=== PATIENT | male | born 1955 | race Caucasian/White ===

== ENCOUNTER 2016-10-06 07:26 | Day surgery (SDC) | payer BC ==
[2016-10-06] VITALS (11 sets, daily range): BP systolic 96–108; BP diastolic 50–62; PULSE 59–61; TEMP 36.7–36.9; O2SAT 93–97; Ht 182.9 cm; Wt 74.0 kg
[~2016-10-06] VITALS: Ht 182.9 cm; Wt 74.0 kg
[2016-10-06] MEDS ORDERED: CLON1TAB3 PO (08:03)
[2016-10-06] MEDS ORDERED: WARF6TAB5 PO (08:03)
[2016-10-06] MEDS ORDERED: gabapentin PO (08:03)
[2016-10-06] MEDS ORDERED: METO1TAB69 PO (08:03)
[2016-10-06] MEDS ORDERED: TRAM-10 PO (08:03)
[2016-10-06] MEDS ORDERED: CYAN10005 PO (08:03)
[2016-10-06 08:44] LABS: PROTHROMBIN TIME (PATIENT) 11.1 SECONDS (9.0-12.0)
--- NOTE | 2016-10-06 10:51 | DIAGNOSTIC IMAGING REPORT ---
FLUOROSCOPICALLY GUIDED LUMBAR MYELOGRAM CLINICAL HISTORY: Low back pain. FLUOROSCOPY TIME: 0.4 minutes. 4 fluoroscopic spot images submitted PROCEDURE: The procedure, risks and benefits were discussed with the patient including the risk of spinal headache, bleeding and infection. The patient agreed to the procedure and informed written consent was obtained. The procedure was performed by Dr. Padilla following a timeout. The left L3-L4 interlaminar space was targeted. Skin overlying the space was prepped and draped in the usual sterile fashion and local anesthesia was achieved with 1% lidocaine. Under intermittent fluoroscopic guidance, a 20-gauge x 3 1/2 in. Sprotte needle was inserted into the thecal sac. A total of 12cc of Isovue-M 200 was injected into the thecal sac under fluoroscopic guidance. The patient tolerated the procedure well. There were no immediate complications. IMPRESSION: Successful fluoroscopic guided lumbar myelogram. The patient was transported to the CT suite and stable condition. Electronically signed by: Porter Padilla M.D. 10/06/2016 10:50 AM Dictated Date/Time: 10/06/2016 10:48 AM
--- NOTE | 2016-10-06 11:09 | DIAGNOSTIC IMAGING REPORT ---
LUMBAR CT MYELOGRAM HISTORY: LUMBAR SPINE PAIN POST MYELO TECHNIQUE: Multiaxial CT images of the lumbar spine were performed and reformatted in the sagittal and coronal plane following the intrathecal injection of contrast. COMPARISON STUDY: None. FINDINGS: No fracture or subluxation. Mild posterior disc space narrowing at L5-S1. Remaining disc spaces are preserved. The conus terminates at the L1 level. Mild facet degenerative changes at L4-L5 and L5-S1. The sacrum is intact. The paraspinal soft tissues are unremarkable. Suboptimal evaluation the central canal from the L3 and L4 levels due to the layering of contrast. L1-L2: No significant central canal or neural foraminal narrowing. L2-L3: No significant central canal or neural foraminal narrowing. L3-L4: No definite central canal or neural foraminal narrowing. L4-L5: Broad-based posterior disc bulge asymmetric to the left with mild ligamentum and facet hypertrophy. This results in mild central canal and mild left-sided neural foraminal narrowing. The disc bulge appears to abut the transiting left L5 nerve root. L5-S1: Small broad-based posterior disc bulge without significant central canal or neural foraminal narrowing. IMPRESSION: 1. Mild degenerative changes within the lower lumbar spine as described above. 2. This is most pronounced at the L4-5 level where there is a small broad-based posterior disc bulge asymmetric to the left resulting in mild central canal and mild left-sided neural foraminal narrowing. The disc bulge appears to abut the transiting left L5 nerve root Electronically signed by: Porter Padilla M.D. 10/06/2016 11:07 AM Dictated Date/Time: 10/06/2016 10:50 AM
--- NOTE | 2016-10-06 11:41 | Discharge Instructions ---
Discharge Instructions Procedure Procedure Date: Oct 06, 2016. Reason for visit: Lumbar Spine Pain. Discharge Discharge Date: Oct 06, 2016. Discharge Diagnosis: same Instructions Activity Recommendations: No limitations Return to School/Work: no limitations Recommended Home Diet: Resume Previous Diet Provider Instructions: ACTIVITY RECOMMENDATIONS: * Rest today. * Resume regular activity in one day. MEDICATIONS: * May take Tylenol or Ibuprofen as needed for pain. DIET: * Resume previous diet. SPECIAL CARE INSTRUCTIONS: Call your doctor if: * Temperature above 101 degrees F. * Pain not relieved by pain medicine ordered. * Increased drainage or redness from incision. * Notify your doctor with any questions or concerns. Call your doctor or go to the nearest Emergency Department if you experience: * Increased chest pain or shortness of breath. FOLLOW UP VISIT: Follow-up with Referring Physician as scheduled. Allergies Coded Allergies: Indomethacin (Verified Adverse Reaction, Unknown, bruises, 10/06/16) Alexus Ohara Recommendations: Call your doctor if: * Temperature above 101 degrees * Pain not relieved by pain medicine ordered * There is increased drainage or redness from any incision * You have any unanswered questions or concerns. Your Doctors Instructions noted above were prepared by provider Porter Padilla. Patient Signature Section: Patient Instructions Signature Page Steve Mace Patient (or Guardian) Signature/Date: I have read and understand the instructions given to me by my caregivers. Caregiver/RN/Doctor Signature/Date: The above-named patient and/or guardian has received patient instructions on this date. + Original Patient Signature Page (only) stays with chart. Please make copy for patient.
[2016-10-06] MEDS ORDERED: ACETAMINOPHEN 500 MG TAB PO PRN (11:45)
[2016-10-28] MEDS ORDERED: CMD3 PO ×2 (09:13)
[2016-10-28] MEDS ORDERED: METO25TA3 PO (09:13)
[2016-10-28] MEDS ORDERED: GABA-113 PO (09:13)
[2016-10-28] MEDS ORDERED: FLM4 PO (09:13)
== END 2016-10-06 15:07 | disposition home or self-care (01) ==
LOC: C.ACU 07:26
PROVIDERS: ATTEND Orthopaedic Surgery Orthopaedic Surgery of the Spine
DX: M54.5 Low back pain (principal)

== ENCOUNTER → 2016-10-19 | Outpatient (CLI) | payer BC ==
[~2016-10-19] MED LIST: CLON1TAB3 PO; CMD3 PO; CYAN10005 PO; FLM4 PO; GABA-113 PO; METO1TAB69 PO; METO25TA3 PO; RXC5 PO; TRAM-10 PO; WARF6TAB5 PO; gabapentin PO
--- NOTE | 2016-10-19 13:35 | DIAGNOSTIC IMAGING REPORT ---
ANKLE BRACHIAL INDEX LIMITED CLINICAL HISTORY: 61 years-old Male presenting with BILATERAL LOWER EXTREMITY PAIN. TECHNIQUE: Ankle brachial indices were obtained. COMPARISON: None. FINDINGS: Brachial: Right: 110 mmHg. Left: 110 mmHg. Ankle (posterior tibial): Right: 138 mmHg. Left: 145 mmHg. Ankle (dorsalis pedis): Right: 139 mmHg. Left: 146 mmHg. Ankle/brachial index: Right: 1.25-1.26, Left: 1.32-1.33. Reference ranges: Normal GLEN 1.0-1.4; 0.9-0.99 borderline; less than 0.9 abnormal. IMPRESSION: Normal bilateral ankle-brachial indices. Electronically signed by: Kenny Sanchez M.D. 10/19/2016 1:34 PM Dictated Date/Time: 10/19/2016 1:32 PM
== END | disposition home or self-care (01) ==
LOC: C.ULTR 12:44
PROVIDERS: ATTEND Orthopaedic Surgery Orthopaedic Surgery of the Spine
DX: M79.604 Pain in right leg (principal)

== ENCOUNTER 2016-11-11 05:36 | Inpatient (IN) | payer BC ==
[2016-10-28 08:45] VITALS: BMI 21.0
--- NOTE | 2016-10-28 09:28 | PAT Medication Instructions ---
Service Date Oct 28, 2016. Current Home Medication List Clonazepam (Klonopin), 1 MG PO QAM Cyanocobalamin (Vitamin B-12), 1,000 MCG PO QDL Gabapentin (Neurontin), 600 MG PO TID Metoprolol Succ (Toprol Xl) (Toprol-Xl), 25 MG PO BID Tamsulosin HCl (Tamsulosin HCl), 1 TAB PO QPM Tramadol (Ultram), 50 MG PO DAILY PRN for Pain Warfarin Sod (Coumadin), 2 TAB PO DAILY Warfarin Sod (Coumadin), 3 MG PO WK Medication Instructions For Your Scheduled Surgery - Instructions to be given by Cardiology: Warfarin Sod (Coumadin) - Hold the following medications the morning of surgery: Cyanocobalamin (Vitamin B-12), 1,000 MCG PO QDL - Take the following medications the morning of surgery with a sip of water OTHERWISE NOTHING TO EAT OR DRINK AFTER MIDNIGHT: Gabapentin (Neurontin), 600 MG PO TID Tramadol (Ultram), 50 MG PO DAILY PRN for Pain (may take if needed up to 4 hours prior to surgery) Metoprolol Succ (Toprol Xl) (Toprol-Xl), 25 MG PO BID Clonazepam (Klonopin), 1 MG PO QAM - Take the following medications as scheduled the night before surgery: Gabapentin (Neurontin), 600 MG PO TID Tramadol (Ultram), 50 MG PO DAILY PRN for Pain Metoprolol Succ (Toprol Xl) (Toprol-Xl), 25 MG PO BID Tamsulosin HCl (Tamsulosin HCl), 1 TAB PO QPM If you have any questions please call us at [phone] or [phone] or [phone]
--- NOTE | 2016-10-28 10:15 | DIAGNOSTIC IMAGING REPORT ---
CHEST PREADMISSION(PA/LAT) CLINICAL HISTORY: PAT preoperative evaluation COMPARISON STUDY: No previous studies for comparison. FINDINGS: Permanent bipolar cardiac pacemaker in good position. Lungs are considered clear. Diaphragms smooth. There are no focal infiltrative changes. IMPRESSION: Negative chest. The above report was generated using voice recognition software. It may contain grammatical, syntax or spelling errors. Electronically signed by: Иван Zavaleta M.D. 10/28/2016 10:14 AM Dictated Date/Time: 10/28/2016 10:13 AM
[2016-10-28 10:23] LABS: BASO % 0.2 %; BASO ABS # 0.01 K/uL (0-0.2); COMPLETE YES; HEMATOCRIT 43.8 % (42-52); IG% 0.2 %; LYMPH % 29.9 %; LYMPH ABS # 1.34 K/uL (1.2-3.4); MEAN CELL VOLUME 91.3 fL (80-100); MEAN CORPUSCULAR HEMOGLOBIN 29.8 pg (25-34); MEAN CORPUSCULAR HGB CONC 32.6 g/dl (32-36); MEAN PLATELET VOLUME 10.1 fL (7.4-10.4); MONO % 6.5 %; NEUT % 61.2 %; PLATELET COUNT 161 K/uL (130-400); WHITE BLOOD COUNT 4.48 K/uL (4.8-10.8)
[2016-10-28 10:26] LABS: URINE APPEARANCE CLEAR (CLEAR); URINE COLOR DK YELLOW; URINE NITRITE NEG (NEG); URINE PH 5.5 (4.5-7.5); URINE SPECIFIC GRAVITY 1.031 (1.000-1.030); UROBILINOGEN NEG (NEG); ZZUR CULT IF INDIC CLEAN CATCH NO
[2016-10-28 10:31] LABS: MANUAL MICROSCOPIC REQUIRED? NO; REVIEW REQ? NO
[2016-10-28 10:33] LABS: URINE BILIRUBIN NEG (NEG)
[2016-11-06 14:07] VITALS: BMI 21.0
[~2016-11-11] VITALS: Ht 182.9 cm; Wt 71.8 kg
[2016-11-11] VITALS (10 sets, daily range): BP systolic 95–130; BP diastolic 49–67; PULSE 60–93; TEMP 36.3–36.8; O2SAT 96–100; Ht 182.9 cm; Wt 71.8 kg
[~2016-11-11 05:36] MED LIST changes: -METO1TAB69 PO; -RXC5 PO; -WARF6TAB5 PO; -gabapentin PO
[2016-11-11] MEDS ORDERED: LACTATED RINGER'S 1000ML 1,000 ML IV SCH (06:00)
[2016-11-11] MEDS ORDERED: CEFAZOLIN 1000MG/55 ML D5W IV SCH (06:00)
[2016-11-11] MEDS ORDERED: MIDAZOLAM HCL 1 MG/ML 2ML VIAL ONE (06:41)
[2016-11-11] MEDS ORDERED: FENTANYL CITRATE INJ 50 MCG/1 ML 2 ML VIAL ONE ×2 (06:41→08:15)
[2016-11-11] MEDS ORDERED: BACITRACIN 50000 UNIT VIAL ONE (06:55)
[2016-11-11] MEDS ORDERED: BUPIVACAINE/EPINEPHRINE 0.5% MPF 1:200,000 30 ML VIAL ONE (06:55)
--- NOTE | 2016-11-11 07:29 | History & Physical Bridge Note ---
H&P Re-Evaluation Bridge Note: I have examined the patient, reviewed the History & Physical and in the interval since the performance of the History & Physical I have noted the following changes of clinical significance: No changes noted
--- NOTE | 2016-11-11 07:30 | History and Physical ---
History & Physical Date Nov 11, 2016. Chief Complaint Chronic back and leg pain History of Present Illness The patient is a 61 year old male with complaints of chronic back and leg pain Additional History Hepatic Disease: No Endocrine Disorder: No Kidney Disease: No Hypertension: Yes Heart Disease: No Bleeding Tendencies: No Infectious Diseases: No Allergies Coded Allergies: Indomethacin (Verified Adverse Reaction, Unknown, bruises, 11/11/16) Home Medications Scheduled Clonazepam (Klonopin), 1 MG PO QAM Cyanocobalamin (Vitamin B-12), 1,000 MCG PO QDL Gabapentin (Neurontin), 600 MG PO TID Metoprolol Succ (Toprol Xl) (Toprol-Xl), 25 MG PO BID Tamsulosin HCl (Tamsulosin HCl), 1 TAB PO QPM Warfarin Sod (Coumadin), 2 TAB PO DAILY Warfarin Sod (Coumadin), 3 MG PO WK Scheduled PRN Tramadol (Ultram), 50 MG PO DAILY PRN for Pain Physical Examination Skin: warm/dry, no rash Eyes: normal inspection, EOMI, sclerae normal ENT: normal ENT inspection, pharynx normal Head: normocephalic, atraumatic Neck: supple, no adenopathy, trachea midline Respiratory/Chest: lungs clear, normal breath sounds, no respiratory distress Cardiovascular: regular rate, rhythm, no edema, no murmur Abdomen / GI: normal bowel sounds, non tender Back: normal inspection Extremities: normal inspection, normal range of motion Neurologic/Psych: no motor/sensory deficits, alert, normal reflexes, oriented x 3 Diagnosis Chronic back and leg pain Plan of Treatment Spinal cord stimulator trial
[2016-11-11 07:48] LABS: PROTHROMBIN TIME (PATIENT) 10.7 SECONDS (9.0-12.0)
[2016-11-11] MEDS ORDERED: FENTANYL CITRATE INJ 50 MCG/1 ML 2 ML VIAL IV PRN (08:00)
[2016-11-11] MEDS ORDERED: ONDANSETRON INJ 2 MG/ML 2 ML VIAL IV PRN ×2 (08:00→08:45)
[2016-11-11] MEDS ORDERED: ATROPINE SULFATE 0.1 MG/ML 5ML SYR IV PRN (08:00)
[2016-11-11] MEDS ORDERED: PROMETHAZINE HCL INJ 6.25 MG in SODIUM CHLORIDE 0.9% 50ML 50 ML IV PRN (08:00)
[2016-11-11] MEDS ORDERED: EpHEDrine SULFATE INJ 50 MG/ML AMP IV PRN (08:00)
[2016-11-11] MEDS ORDERED: HYDROmorphone INJ 1 MG/ML SYR IV PRN ×2 (08:00→08:45)
[2016-11-11] MEDS ORDERED: FLOSEAL HEMOSTATIC MATRIX 5ML TOP ONE (08:13)
[2016-11-11] MEDS ORDERED: HYDROmorphone INJ 2 MG/ML SYR/VIAL ONE (08:15)
--- NOTE | 2016-11-11 08:42 | DIAGNOSTIC IMAGING REPORT ---
SPINE ONE VIEW, ANY LEVEL HISTORY: Spinal stimulator placement. FLUOROSCOPY TIME: 9.5 seconds. FINDINGS: Intraoperative fluoroscopy was provided for the thoracic spine. 1 fluoroscopic spot images were obtained. IMPRESSION: Fluoroscopy provided for a low thoracic stimulator placement. The above report was generated using voice recognition software. It may contain grammatical, syntax or spelling errors. Electronically signed by: Иван Zavaleta M.D. 11/11/2016 8:41 AM Dictated Date/Time: 11/11/2016 8:40 AM
--- NOTE | 2016-11-11 08:43 | [facility] Operative Report ---
Operative Report Operative Date Nov 11, 2016. Pre-Operative Diagnosis Chronic back and leg pain. Post-Operative Diagnosis Chronic back and leg pain Procedure(s) Performed #1 T10 laminotomy. #2 placement of 16-lead dorsal column stimulator paddle #3 Tashman of external leads for dorsal column stimulator trial Surgeon Molder Wax Ball Surgeon(s) Marion Pang PA-C Estimated Blood Loss 10ml Findings None Specimens None per surgeon Description of Procedure Patient was met with preoperatively case discussed all questions are dressed. After informed consent patient was taken to the operative suite and underwent intubation placed in a prone position the [place] table top Cullen frame. All bony prominences were well-padded eyes were inspected to ensure there is no external pressure. With the assistance of fluoroscopy identified the T 1011 disc space. A midline incision was created overlying this region. Sharp dissection with the assistance of Bovie cautery was performed onto an exposing the interlaminar space at T10 11. Then performed a midline T10 laminotomy large enough to place a 16-lead dorsal column stimulator paddle. This was slid cephalad to lie between the T9 and T10 vertebral bodies on imaging. The leads were then sewn into position. I attached external leads to the device. They were then tunneled and brought out to the left flank. They were tested and determine to be functional. Incision was then closed with subcutaneous Vicryl and 4 Monocryl for final skin closure. Steri-Strips sterile dressings placed. Patient we can taken to PACU stable condition. Please note Marion Mei was present at the entire procedure involved in patient positioning complex portions of the surgery and final skin closure. I attest to the content of the Intraoperative Record and any orders documented therein. Any exceptions are noted below.
[2016-11-11] MEDS ORDERED: MAGNESIUM HYDROXIDE SUSP 30 ML UDC PO PRN (08:45)
[2016-11-11] MEDS ORDERED: ACETAMINOPHEN 325 MG TAB PO PRN (08:45)
[2016-11-11] MEDS ORDERED: ACETAMINOPHEN 500 MG TAB PO PRN (08:45)
[2016-11-11] MEDS ORDERED: LORAZEPAM INJ 1 MG in SYRINGE 0.5 ML IV PRN (08:45)
[2016-11-11] MEDS ORDERED: DO NOT ADMINISTER PNEUMOCOCCAL VACCINE PRN ×2 (08:45)
[2016-11-11] MEDS ORDERED: DO NOT ADMINISTER FLU VACCINE PRN ×3 (08:45)
[2016-11-11] MEDS ORDERED: LORAZEPAM 1 MG TAB PO PRN (08:45)
[2016-11-11] MEDS ORDERED: HYDROmorphone INJ 2 MG/ML SYR/VIAL IV PRN (09:30)
--- NOTE | 2016-11-11 09:30 | Anesthesiology Progress Note ---
Anesthesia Post Op Note Date & Time Nov 11, 2016 at 09:30 Vital Signs Pain Intensity: 4 Vital Signs Past 12 Hours Date Time Temp Pulse Resp B/P (MAP) Pulse Ox O2 Delivery O2 Flow Rate FiO2 11/11/16 09:25 66 14 93/42 87 Room Air 11/11/16 09:15 67 19 98/45 96 Room Air 11/11/16 09:05 65 12 92/44 100 Oxymask 10 11/11/16 08:55 67 15 103/50 98 Oxymask 10 11/11/16 08:49 36.5 66 18 106/47 100 Oxymask 10 11/11/16 06:31 36.8 60 20 102/60 96 Room Air Notes Mental Status: alert / awake / arousable, participated in evaluation Pt Amnestic to Procedure: Yes Nausea / Vomiting: adequately controlled Pain: adequately controlled Airway Patency, RR, SpO2: stable & adequate BP & HR: stable & adequate Hydration State: stable & adequate Anesthetic Complications: no major complications apparent
[2016-11-11] MEDS ORDERED: KETOROLAC TROMETHAMINE 30 MG/ML VIAL ONE (09:38)
[2016-11-11] MEDS ORDERED: GLYCOPYRROLATE INJ 0.2 MG/ML VIAL ONE (09:38)
[2016-11-11] MEDS ORDERED: ONDANSETRON INJ 2 MG/ML 2 ML VIAL ONE (09:38)
[2016-11-11] MEDS ORDERED: ROCURONIUM BROMIDE 10 MG/ML 5 ML VIAL IV ONE (09:38)
[2016-11-11] MEDS ORDERED: LIDOCAINE HCL 2% 2 ML VIAL (20MG/ML) ONE (09:38)
[2016-11-11] MEDS ORDERED: NEOSTIGMINE METHYLSULFATE 1 MG/ML 10ML VIAL ONE (09:38)
[2016-11-11] MEDS ORDERED: PROPOFOL IV EMULSION 10 MG/ML 20 ML VIAL IV ONE (09:38)
[2016-11-11] MEDS ORDERED: EpHEDrine SULFATE 50MG/5ML SYR ONE (09:38)
[2016-11-11] MEDS ORDERED: DEXAMETHASONE SOD INJ 4 MG/ML VIAL ONE (09:38)
[2016-11-11] MEDS ORDERED: PHENYLEPHRINE 100MCG/ML 5ML SYR ONE (09:38)
[2016-11-11] MEDS: OXYCODONE HCL IR 5 MG TAB (IMMEDIATE RELEASE) PO PRN ×2 (10:21→23:45)
[2016-11-11] MEDS: LACTATED RINGER'S 1000ML 1,000 ML IV SCH ×2 (10:23→21:15)
[2016-11-11] MEDS ORDERED: RXC5 PO (13:38)
--- NOTE | 2016-11-11 13:39 | Discharge Instructions ---
Discharge Instructions Date of Service Nov 11, 2016. Admission Reason for Admission: Pain In Right Leg Discharge Discharge Diagnosis / Problem: chronic persistent back and leg pain Discharge Goals Goal(s): Decrease discomfort Activity Recommendations Activity Limitations: per Instructions/Follow-up section . Instructions / Follow-Up Instructions / Follow-Up ACTIVITY RECOMMENDATIONS: SELF CARE INSTRUCTIONS AFTER A LAMINECTOMY 1. No prolonged sitting (less than 30 minutes for the first 3 weeks after surgery). 2. No bending, lifting more than 5 pounds, or twisting (roll like a log when turning in bed). 3. You may shower 3 days after surgery if no drainage from wound. Thoroughly dry wound. Do not soak in the tub. 4. Please walk as much as you can for exercise. Gradually increase the distance that you walk as your endurance increases. 5. You may drive in 7-10 days if you are comfortable and no longer requiring pain medications. SPECIAL CARE INSTRUCTIONS: VERY IMPORTANT TO READ AND REVIEW A. Your surgical incision has been closed with a cosmetic suture under the skin that will dissolve in about 6 weeks. In 14 days, you can use a pair of clean scissors and cut the suture that is left outside of the skin at the ends of your incision. B. Complications are uncommon, but please contact us if you have any signs or symptoms of: 1. wound infection (fever higher than 102.5 degrees F, redness, separation of wound, drainage, or increasing pain from the incision) 2. blood clots in legs (pain, swelling, redness and warmth in legs) 3. urinary tract infection (fever higher than 102.5 degrees, burning upon urination or increased frequency of urination) 4. nerve problems (inability to walk on your toes or heels, numbness, loss of bowel or bladder control) 5. any other symptoms that concern you. C. Please call the office at if you have any concerns or questions about your operation or recovery. MANAGING PAIN AFTER SPINAL SURGERY 1. Narcotic medication is intended for short-term use and will be provided for surgical pain. Surgical pain usually lasts for a period of 4-6 weeks. Narcotic medication includes Percocet, Vicodin, Darvocet, Tylenol #3 or Lortab. 2. Longer-term pain is more appropriately treated with non-narcotic medication such as Tylenol ES. 3. Muscle spasm is not appropriately treated with narcotics. Muscle relaxers such as Soma, Flexeril or Skelaxin can be used along with Tylenol ES. 4. Remember that we all live with some "aches and pains". This is not unusual or uncommon after an injury or as we get older. 5. We will provide appropriate medication within the normal guidelines of their prescribed use. We will also be very cautious and aware of potential abuse and extended duration of patients' medication needs. 6. Please allow 2-3 days to process refills. Prescriptions will not be mailed but must be picked up at the office. FOLLOW UP VISIT: Keep your scheduled follow-up appointment. Any questions, please call the office at . Current Hospital Diet Patient's current hospital diet: Regular Diet Discharge Diet Recommended Diet: Regular Diet Procedures Procedures Performed: #1 T10 laminotomy. #2 placement of 16-lead dorsal column stimulator paddle #3 Tashman of external leads for dorsal column stimulator trial Pending Studies Studies pending at discharge: no Medical Emergencies . Who to Call and When: Medical Emergencies: If at any time you feel your situation is an emergency, please call 911 immediately. . Non-Emergent Contact Non-Emergency issues call your: Primary Care Provider . "Provider Documentation" section prepared by Don Branch. . VTE Core Measure Inpt VTE Proph given/why not?: Manjula Brown, SCD's
[2016-11-11] MEDS: GABAPENTIN 600 MG TAB PO SCH ×2 (14:25→21:15)
[2016-11-11] MEDS: DOCUSATE SODIUM 100 MG CAP PO SCH ×2 (14:28→21:15)
[2016-11-11] MEDS: CEFAZOLIN IV 1,000 MG in DEXTROSE 5% 50ML 50 ML IV SCH ×2 (16:08→23:45)
[2016-11-11] MEDS: TAMSULOSIN HCL 0.4 MG CAP PO SCH (21:15)
[2016-11-11] MEDS: METOPROLOL SUCC 25MG EXT REL TAB PO SCH (21:17)
[2016-11-12 04:00] VITALS: BP 110/57; PULSE 82; TEMP 36.8; O2SAT 98
[2016-11-12 07:16] VITALS: BP 96/58; PULSE 66; TEMP 36.8; O2SAT 99
[2016-11-12] MEDS: CEFAZOLIN IV 1,000 MG in DEXTROSE 5% 50ML 50 ML IV SCH (07:39)
[2016-11-12] MEDS: CLONAZEPAM 1 MG TAB PO SCH (09:12)
[2016-11-12] MEDS: GABAPENTIN 600 MG TAB PO SCH ×3 (09:13→20:46)
[2016-11-12] MEDS: DOCUSATE SODIUM 100 MG CAP PO SCH ×2 (09:14→20:46)
[2016-11-12] MEDS: METOPROLOL SUCC 25MG EXT REL TAB PO SCH ×2 (09:16→20:46)
[2016-11-12 09:18] VITALS: BP 101/63
[2016-11-12] MEDS: LACTATED RINGER'S 1000ML 1,000 ML IV SCH (09:37)
--- NOTE | 2016-11-12 09:52 | Anesthesiology Progress Note ---
Anesthesia Post Op Note Date & Time Nov 12, 2016 at 09:52 Vital Signs Pain Intensity: 7.0 Vital Signs Past 12 Hours Date Time Temp Pulse Resp B/P (MAP) Pulse Ox O2 Delivery O2 Flow Rate FiO2 11/12/16 09:18 101/63 (76) 11/12/16 07:16 36.8 66 19 96/58 (71) 99 Room Air 11/12/16 04:00 36.8 82 16 110/57 (74) 98 Room Air 11/11/16 23:32 36.8 93 16 95/49 (64) 96 Room Air 98/55 (69) 11/11/16 23:30 Room Air Notes Mental Status: alert / awake / arousable, participated in evaluation Pt Amnestic to Procedure: Yes Nausea / Vomiting: adequately controlled Pain: adequately controlled Airway Patency, RR, SpO2: stable & adequate BP & HR: stable & adequate Hydration State: stable & adequate Anesthetic Complications: no major complications apparent
--- NOTE | 2016-11-12 11:53 | Progress Note ---
Progress Note Date of Service Nov 12, 2016. Progress Note Patient's noting significant improvement of his chronic persistent leg pain with the use of the stimulating device. We discussed formal implantation tomorrow. He is in agreement with this plan. We will make him nothing by mouth after midnight and plan for implantation of stimulator battery Wednesday and most likely discharge home.
[2016-11-12] MEDS: TRAMADOL HCL 50 MG TAB PO PRN (12:48)
[2016-11-12 15:36] VITALS: BP 110/62; PULSE 66; TEMP 37; O2SAT 98
[2016-11-12] MEDS: OXYCODONE HCL IR 5 MG TAB (IMMEDIATE RELEASE) PO PRN (16:07)
[2016-11-12 20:44] VITALS: BP 102/61; PULSE 72
[2016-11-12] MEDS: TAMSULOSIN HCL 0.4 MG CAP PO SCH (20:46)
[2016-11-12 23:03] VITALS: BP 93/51; PULSE 70; TEMP 37; O2SAT 98
[2016-11-13] VITALS (8 sets, daily range): BP systolic 99–107; BP diastolic 55–64; PULSE 61–94; TEMP 36.4–37.2; O2SAT 94–98
[2016-11-13] MEDS: TRAMADOL HCL 50 MG TAB PO PRN ×3 (00:29→13:59)
[2016-11-13] MEDS ORDERED: BISACODYL 5 MG TABEC PO PRN (06:00)
[2016-11-13] MEDS ORDERED: BISACODYL 10 MG SUPP PR PRN (06:00)
[2016-11-13] MEDS ORDERED: EpHEDrine SULFATE INJ 50 MG/ML AMP IV PRN (06:45)
[2016-11-13] MEDS ORDERED: FENTANYL CITRATE INJ 50 MCG/1 ML 2 ML VIAL IV PRN (06:45)
[2016-11-13] MEDS ORDERED: HYDROmorphone INJ 1 MG/ML SYR IV PRN (06:45)
[2016-11-13] MEDS ORDERED: ATROPINE SULFATE 0.1 MG/ML 5ML SYR IV PRN (06:45)
[2016-11-13] MEDS ORDERED: MIDAZOLAM HCL 1 MG/ML 2ML VIAL ONE (06:46)
[2016-11-13] MEDS ORDERED: FENTANYL CITRATE INJ 50 MCG/1 ML 2 ML VIAL ONE (06:47)
[2016-11-13] MEDS ORDERED: BUPIVACAINE/EPINEPHRINE 0.5% MPF 1:200,000 30 ML VIAL ONE (07:03)
[2016-11-13] MEDS ORDERED: BACITRACIN 50000 UNIT VIAL ONE (07:04)
[2016-11-13] MEDS ORDERED: CEFAZOLIN IV 2,000 MG/60 ML D5W IV ONE (07:21)
[2016-11-13] MEDS ORDERED: HYDROmorphone INJ 2 MG/ML SYR/VIAL ONE (08:00)
[2016-11-13] MEDS ORDERED: DEXAMETHASONE SOD INJ 4 MG/ML VIAL ONE (08:10)
[2016-11-13] MEDS ORDERED: PHENYLEPHRINE 100MCG/ML 5ML SYR ONE (08:10)
[2016-11-13] MEDS ORDERED: LIDOCAINE HCL 2% 2 ML VIAL (20MG/ML) ONE (08:10)
[2016-11-13] MEDS ORDERED: ROCURONIUM BROMIDE 10 MG/ML 5 ML VIAL IV ONE (08:11)
[2016-11-13] MEDS ORDERED: KETOROLAC TROMETHAMINE 30 MG/ML VIAL ONE (08:11)
[2016-11-13] MEDS ORDERED: PROPOFOL IV EMULSION 10 MG/ML 20 ML VIAL IV ONE (08:11)
[2016-11-13] MEDS ORDERED: NEOSTIGMINE METHYLSULFATE 1 MG/ML 10ML VIAL ONE (08:11)
[2016-11-13] MEDS ORDERED: GLYCOPYRROLATE INJ 0.2 MG/ML VIAL ONE (08:11)
[2016-11-13] MEDS ORDERED: ONDANSETRON INJ 2 MG/ML 2 ML VIAL ONE (08:11)
--- NOTE | 2016-11-13 08:27 | [facility] Operative Report ---
Operative Report Operative Date Nov 13, 2016. Pre-Operative Diagnosis Chronic Back and Leg Pain Post-Operative Diagnosis Same as preoperative Procedure(s) Performed #1 removal of temporary stimulator leads. #2 implantation of rechargeable dorsal column stimulator battery. Surgeon Dr. Don Branch Drill Presser Surgeon(s) Marcelino Arellano PA-C Estimated Blood Loss 10ml Findings None Specimens None per surgeon Description of Procedure Patient was met with preoperatively case discussed all questions are dressed. After informed consent obtained patient was taken to the operative suite and intubated placed in a prone position the [place] table on top Cullen frame. All bony prominences were well-padded eyes inspected to ensure no external pressure. The thoracal lumbar spine was prepped and draped in normal sterile fashion. I opened the laminotomy site at T10. The wires were removed. The temporary leads were detached and removed externally. I then created a pocket for the battery over the right flank. A trocar was used to pass the permanent wires to the pocket. They were then attached to the battery. The system was tested and determined to be functional. Subsequently the battery was placed in the pocket and sewn in position. The laminotomy site was copiously irrigated with antibiotic solution and closed the subcutaneous Vicryl for Monocryl for both incisions Steri-Strips sterile dressing placed. Patient awakened and taken to PACU stable condition. I attest to the content of the Intraoperative Record and any orders documented therein. Any exceptions are noted below.
[2016-11-13] MEDS ORDERED: POLYETHYLENE (MIRALAX) 17 GM PACK PO SCH (09:00)
[2016-11-13] MEDS: CLONAZEPAM 1 MG TAB PO SCH (10:22)
[2016-11-13] MEDS: OXYCODONE HCL IR 5 MG TAB (IMMEDIATE RELEASE) PO PRN ×2 (10:22→14:19)
[2016-11-13] MEDS: GABAPENTIN 600 MG TAB PO SCH ×2 (10:23→13:25)
[2016-11-13] MEDS: DOCUSATE SODIUM 100 MG CAP PO SCH (10:23)
[2016-11-13] MEDS: METOPROLOL SUCC 25MG EXT REL TAB PO SCH (10:25)
--- NOTE | 2016-11-13 10:27 | Anesthesiology Progress Note ---
Anesthesia Post Op Note Date & Time Nov 13, 2016 at 10:27 Vital Signs Vital Signs Past 12 Hours Date Time Temp Pulse Resp B/P (MAP) Pulse Ox O2 Delivery O2 Flow Rate FiO2 11/13/16 10:25 69 106/64 (78) 11/13/16 10:12 69 16 103/55 (71) 96 Room Air 11/13/16 10:07 Room Air 11/13/16 10:00 Room Air 11/13/16 09:45 36.4 61 16 105/63 (77) 98 Room Air 11/13/16 09:25 36.7 60 16 108/69 96 Room Air 11/13/16 09:15 62 16 111/60 95 11/13/16 09:05 69 16 118/59 100 Mask 10 11/13/16 08:55 69 16 113/64 99 Mask 10 11/13/16 08:49 36.6 69 16 123/71 99 Mask 10 11/13/16 06:47 36.9 70 16 99/55 (70) 96 Room Air 11/12/16 23:45 Room Air 11/12/16 23:03 37.0 70 16 93/51 (65) 98 Room Air Notes Mental Status: alert / awake / arousable, participated in evaluation Pt Amnestic to Procedure: Yes Nausea / Vomiting: adequately controlled Pain: adequately controlled Airway Patency, RR, SpO2: stable & adequate BP & HR: stable & adequate Hydration State: stable & adequate Anesthetic Complications: no major complications apparent
[2016-11-13] MEDS ORDERED: NURSING VERBAL MED ORDER ONE (13:45)
--- NOTE | 2016-11-13 16:02 | Discharge Summary ---
Orthopedic Discharge Summary Admission Date/Reason Nov 11, 2016 at 07:30 Pain In Right Leg. Discharge Date/Disposition Nov 13, 2016 Home Diagnosis Principal Diagnosis: Chronic leg pain Admission Physical Exam As per Admitting History & Physical. Hospital Course Patient underwent dorsal calm stimulator trial on Wednesday. He was receiving significant improvement of his leg symptoms postoperatively subsequently we elected for formal implantation on Wednesday. He tolerated this well and was discharged home. Discharge orders and instructions found on the chart for further review. Discharge Instructions Please refer to the electronic Patient Visit Report (Discharge Instructions) for additional information.
== END 2016-11-13 14:45 | disposition home or self-care (01) | DRG 30 ==
LOC: C.ACU 05:36 → C.3E 07:30 → ENRESERV 09:09
PROVIDERS: ADMIT Orthopaedic Surgery Orthopaedic Surgery of the Spine; ATTEND Orthopaedic Surgery Orthopaedic Surgery of the Spine
PROC: 00HU0MZ Insertion of Neurostimulator Lead into Spinal Canal, Open Approach (ICD-10-PCS; principal; 2016-11-11 07:45)
PROC: 00HU0MZ Insertion of Neurostimulator Lead into Spinal Canal, Open Approach (ICD-10-PCS; 2016-11-13)
PROC: 00PV0MZ Removal of Neurostimulator Lead from Spinal Cord, Open Approach (ICD-10-PCS; 2016-11-13)
PROC: 0JH73MZ Insertion of Stimulator Generator into Back Subcutaneous Tissue and Fascia, Percutaneous Approach (ICD-10-PCS; 2016-11-13)
DX: G89.29 Other chronic pain (principal); M54.9 Dorsalgia, unspecified; M79.606 Pain in leg, unspecified; Z79.01 Long term (current) use of anticoagulants; Z79.899 Other long term (current) drug therapy